=== PATIENT | male | born 1970 | race Caucasian/White ===

== ENCOUNTER 2020-06-02 15:59 | Outpatient (REF) | payer BC, SELFPAY ==
--- NOTE | ~2020-06-02 | XR_ITS ---
EXAMINATION: XR CHEST CLINICAL INFORMATION: Cough COMPARISON: Radiographs cervical spine and dorsal spine 02/13/2019 TECHNIQUE: 2 views of the chest were obtained. FINDINGS: There is linear scarring versus subsegmental atelectasis right upper lobe extending towards hilum. This is beyond field of view on prior spine radiographs. There is no lobar segmental airspace consolidation or effusion. The costophrenic sulci are clear. The heart is normal in size. Mild degenerative changes spine. XR/XR chest 2V IMPRESSION: Linear scarring versus disc atelectasis right upper lobe. No airspace consolidation or effusion.
== END 2020-06-02 16:00 | disposition home or self-care (01) ==
LOC: HO.XRAY 15:59
PROVIDERS: PCP Physician Assistant; Visit Provider Physician Assistant
DX: R05 Cough (principal)
CPT/HCPCS: 71046

== ENCOUNTER 2020-06-08 07:53 | Outpatient (REF) | payer BC, SELFPAY ==
[2020-06-08 10:34] LABS: Estimated Average Glucose 100 mg/dL; Hemoglobin A1C 123.1082 umol/L; Hemoglobin A1c % 5.1 %
[2020-06-08 11:01] LABS: Alanine Aminotransferase 21 U/L (0-40); Albumin Level 4.6 g/dL (3.5-5.0); Alkaline Phosphatase 49 U/L (39-117); Anion Gap 15 (12-20); Aspartate Amino Transferase 17 U/L (5-37); Blood Urea Nitrogen 16 mg/dL (9-16); Calcium 9.1 mg/dL (8.4-10.2); Carbon Dioxide 27 mmol/L (22-29); Chloride 101 mmol/L (96-108); Cholesterol 245 mg/dL; Estimated Glomerular Filt Rate > 60; Glucose Fasting 97 mg/dL (60-99); HDL Cholesterol 61 mg/dL; LDL Cholesterol Calculated 166 mg/dl; Potassium 4.4 mmol/L (3.3-5.1); Sodium 139 mmol/L (135-145); Total Protein 7.1 g/dL (6.5-8.0); Triglycerides 90 mg/dL
[2020-06-08 11:10] LABS: Prostate Specific Antigen Scr 0.76 ng/mL (<0.05-4.0)
== END 2020-06-08 07:54 | disposition home or self-care (01) ==
LOC: HO.10HDL 07:53
PROVIDERS: Visit Provider Physician Assistant
DX: Z13.220 Encounter for screening for lipoid disorders (principal); Z13.1 Encounter for screening for diabetes mellitus; Z12.5 Encounter for screening for malignant neoplasm of prostate
CPT/HCPCS: 36415; 80053; 80061; 83036; 84153

== ENCOUNTER → 2020-12-05 13:18 | Outpatient (BNVA) | payer BC, SELFPAY | PROVIDERS: PCP Physician Assistant; Referring Provider Physician Assistant; Visit Provider Physician Assistant ==

== ENCOUNTER 2021-01-18 14:14 | Outpatient (REF) | payer BC, SELFPAY ==
--- NOTE | ~2021-01-18 | XR_ITS ---
EXAMINATION: XR SHOULDER-BILATERAL CLINICAL INFORMATION: Unspecified disorder of the synovium and tendon. COMPARISON: None TECHNIQUE: 4 views each of both shoulders. FINDINGS: Right shoulder: The bony alignment is intact. The cortices are intact. Articular margins, joint space appear unremarkable. The soft tissues are unremarkable. Left shoulder: The bony alignment is intact. The cortices are intact. Articular margins, joint space appear unremarkable. The soft tissues are unremarkable. XR/XR shoulder RT min 2V IMPRESSION: Unremarkable radiographic appearance of both shoulders.
--- NOTE | ~2021-01-18 | XR_ITS ---
EXAMINATION: XR SHOULDER-BILATERAL CLINICAL INFORMATION: Unspecified disorder of the synovium and tendon. COMPARISON: None TECHNIQUE: 4 views each of both shoulders. FINDINGS: Right shoulder: The bony alignment is intact. The cortices are intact. Articular margins, joint space appear unremarkable. The soft tissues are unremarkable. Left shoulder: The bony alignment is intact. The cortices are intact. Articular margins, joint space appear unremarkable. The soft tissues are unremarkable. XR/XR shoulder LT min 2V IMPRESSION: Unremarkable radiographic appearance of both shoulders.
[2021-01-18 15:36] LABS: C Reactive Protein 0.02 mg/dL (< or = 0.50); Rheumatoid Factor < 15.0 IU/mL (<15.0)
[2021-01-18 15:54] LABS: Erythrocyte Sedimentation Rate 2 MM/HR (0-15)
[2021-01-20 12:56] LABS: Cyclic Citrullinated Peptide <16 UNITS
== END 2021-01-18 14:15 | disposition home or self-care (01) ==
LOC: HO.XRAY 14:14
PROVIDERS: PCP Physician Assistant; Visit Provider Physician Assistant
DX: M25.50 Pain in unspecified joint (principal); M67.911 Unspecified disorder of synovium and tendon, right shoulder; M67.912 Unspecified disorder of synovium and tendon, left shoulder
CPT/HCPCS: 36415; 73030; 85652; 86140; 86200; 86431

== ENCOUNTER 2021-02-06 07:57 | Day surgery (SDC) | payer BC, SELFPAY ==
--- NOTE | 2021-02-01 10:37 | HO.ANESPROP2 ---
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 Surgical History Surgical History H/O varicose vein stripping History of mandibular surgery [place] teeth extracted Social History Social History Household Members Other:: no kids Alcohol intake: current Patient Tobacco Use Status: Never used Tobacco Use of substances other than those prescribed or required for medical reasons: No Are you DNR?: No Advance Directives: No Advance Directives Information Provided: Yes Current occupational status: employed Meds Allergies Allergy/AdvReac Type Severity Reaction Status Date / Time Penicillins [PENICILLINS] Allergy Intermediate RASH Verified 01/27/21 13:01 Home Medications Medication Instructions Recorded Confirmed Last Taken Type cyanocobalamin (vitamin B-12) 1,000 mcg PO DAILY 12/23/19 01/27/21 Unknown History 1,000 mcg tablet (Vitamin B-12) Exam Exam Date and Time: February 01, 2021 1037 Assessment and Plan Assessment Anesthesia Assessment: Chart Reviewed Documented by User: Gela Castro MD 02/06/21 08:22 [facility] Past Medical History Medical History Arthritis GERD (gastroesophageal reflux disease) Hyperlipidemia Leukopenia TMJ arthritis Family History Family History Mother Cancer Father No problems noted. Family history of problems with anesthesia: No Surgical History Surgical History H/O varicose vein stripping History of mandibular surgery [place] teeth extracted History of Problems with Anesthesia: No Social History Social History Household Members Other:: no kids Alcohol intake: current Patient Tobacco Use Status: Never used Tobacco Use of substances other than those prescribed or required for medical reasons: No Are you DNR?: No Advance Directives: No Advance Directives Information Provided: Yes Current occupational status: employed Meds Allergies Allergy/AdvReac Type Severity Reaction Status Date / Time Penicillins [PENICILLINS] Allergy Intermediate RASH Verified 01/27/21 13:01 Home Medications Medication Instructions Recorded Confirmed Last Taken Type cyanocobalamin (vitamin B-12) 1,000 mcg PO DAILY 12/23/19 01/27/21 Unknown History 1,000 mcg tablet (Vitamin B-12) Exam Airway Mallampati Class: II (Upper cap left) TM Dist: >3cm Neck ROM: Full Heart: rrr Lungs: cta Assessment and Plan Assessment Anesthesia Assessment: Anesthesia Plan Discussed and Chart Reviewed Final Anesthetic Review Family History of Problems with Anesthesia: No History of Problems with Anesthesia: No NPO: Yes ASA Class: II Final Preanesthetic Review: No Changes in Pt Med Stat, Meds/Allgs Chart Reviewed and Consent Obtained/Reviewed Patient Risk: Intermediate Procedure Risk: Intermediate Anesthetic Plan Anesthetic Plan: MAC: Disposition: Standard PACU
[2021-02-06 08:11] VITALS: BP 139/85; PULSE 75; RESP 16; TEMP 36.4; O2SAT 97; BMI 31.8
[2021-02-06] MEDS: Lactated Ringers 1,000 ML 100 ML IVCONT (08:18)
--- NOTE | 2021-02-06 08:33 | P.HPSUR_ITS ---
Pre-Procedural Eval Section A Date of Service: 02/06/21 Section B Chief Complaint: GERD, Screening Relevant Family History (Specify if Yes): Yes Relevant Social History: None Present Medications: see Short Stay Collaborative assessment Medical History: Significant History (Arthritis GERD (gastroesophageal reflux disease) Hyperlipidemia Leukopenia TMJ arthritis) History of Previous Operations: Relevant previous surgery/procedure and date(s) (H/O varicose vein stripping History of mandibular surgery [place] teeth extracted) Allergies: Allergies Allergy/AdvReac Type Severity Reaction Status Date / Time Penicillins [PENICILLINS] Allergy Intermediate RASH Verified 01/27/21 13:01 Review of Systems Sugical H&P ROS: Negative: Constitution, Cardiovascular, Respiratory, Neurological, Psychiatric, Hem-Onc, Allergic/Immunologic, Gastrointestinal, Genitourinary, Musculoskeletal, Integumentary, Endocrine and Eyes/Ears/Nose/Throat Exam Surgical H&P Exam: Normal: HEENT, Normal: Heart, Normal: Lungs, Normal: Extremi ties, Normal: Abdomen, Normal: Skin and Normal: Neurological Plan Diagnosis/Plan: Unchanged I have reviewed the history and physical and performed a pertinent physical examination on my patient. No changes have occurred unless specified.
--- NOTE | 2021-02-06 08:54 | P.BOP_ITS ---
Brief Operative Note Date of Service: 02/06/21 Pre-op diagnosis: GERD, colon screening Post-op diagnosis: same Procedure: see op note Surgeon: Sharon Murphy MD Anesthesia: MAC Was an [facility] Wellness Coordinator used for this Procedure?: No Estimated blood loss (mL): 0 Condition: stable Disposition: PACU
--- NOTE | 2021-02-06 08:54 | P.OP_ITS ---
Operative Note Operative Note Date of Service: 02/06/21 Narrative: Operative Information Procedure Description: EGD, Colonoscopy FLEXIBLE TRANSORAL UPPER GASTROINTESTINAL ENDOSCOPY AND COLONOSCOPY PROCEDURE NOTE UPPER ENDOSCOPY Consent: Indications for the procedure and potential complications of bleeding, perforation, reaction to medications and missed diagnosis were discussed with the patient and informed consent was obtained. Instrument: Olympus GIF H 190 J mid size upper endoscope Monitoring: Vital signs and clinical assessment, continuous EKG monitoring, Pulse oximetry, Carbon Dioxide monitoring and blood pressure monitoring were done throughout the procedure. Procedure: The patient was placed in the left lateral decubitis position and pre-procedure medications were administered and a bite block was placed. The endoscope was inserted into the mouth and advanced under direct vision to the third part of duodenum. A careful inspection was made as the upper endoscope was withdrawn including a retroflexed examination of the proximal stomach; Findings and interventions are described below. Findings: Larynx:erythema noted Esophagus: GE junction at 41 cm, diaphragm hiatus at 43 cm, small sliding h iatal hernia noted. irregular Z line with suspicion for short segment barretts, bx taken. Bx also taken from distal and proximal esophagus in separate jars. The LEs seemed lax. Stomach: Erosive gastritis in the antrum. Biopsies were obtained. Grade 2 flap valve on retroflexed examination of the cardia. Duodenum: mild bulbar duodenitis, bx taken Intervention: Biopsies as noted above COLONOSCOPY Instrument: Olympus variable stiffness pediatric scope 190L Colonoscopy Monitoring: Vital signs and clinical assessment, continuous EKG monitoring, Pulse oximetry, Carbon Dioxide monitoring and blood pressure monitoring were done throughout the procedure. Colon withdrawal time was 17 minutes. Procedure: The patient was placed in the left lateral decubitis position and pre-procedure medications were administered. After a digital rectal examination of the ano-rectum, the video colonoscope was inserted into the rectum and advanced through the colon to the cecum/TI. The colonoscope was slowly withdrawn in a retrograde panoramic fashion and the colon mucosa was carefully examined including a retroflexed view of the rectum. Findings and interventions are described below. Procedure Difficulty: Findings: Terminal Ileum-normal Cecum:normal Ascending Colon: proximal area there was a 12-15 mm laterally spreading granular polypoid lesion with mucosal cap. This was raised with ORISE and then removed with cold snare. The edges were ablated with circumferential APC and then the defect closed with x 2 clips. Transverse Colon -normal Descending Colon:moderate severe diverticulosis Sigmoid Colon: severe diverticulosis with mucosal hypertrophy Rectum: Retroflexion with small internal hemorrhoids, grade I Anorectum - normal Colon preparation: [place] Bowel Preparation Scale Right colon; 2 Transverse colon: 3 Left colon; 3 (0 = Unprepared colon segment with mucosa not seen due to solid stool that cannot be cleared. 1 = Portion of mucosa of the colon segment seen, but other areas of the colon segment not well seen due to staining, residual stool and/or opaque liquid. 2 = Minor amount of residual staining, small fragments of stool and/or opaque l iquid, but mucosa of colon segment seen well. 3 = Entire mucosa of colon segment seen well with no residual staining, small fragments of stool or opaque liquid) Impression and Post Procedure Diagnosis: Endoscopy Findings: gastritis and erosions laryngitis duodenitis possible barretts small hiatal hernia Colonoscopy Findings: polyp internal hemorrhoids diverticular disease Plan: Await Pathology results Repeat Colonoscopy in 3-4 years or earlier if clinically indicated High fiber diet leaflet avoid straining at stool, epsom salts and sitz bath, anusol supps or cream if h pylori pos then treat, check nsaid hx if Barretts pos then repeat EGD in 1 yr with WATS 3D consider PPI instead of H2 jose juan \ Above findings were reviewed with the patient and relevant handouts were provided if indicated.
[2021-02-06 09:27] VITALS: BP 120/78; PULSE 76; RESP 16; TEMP 36.8; O2SAT 96
[2021-02-06 09:42] VITALS: BP 120/73; PULSE 70; RESP 18; TEMP 36.7; O2SAT 95
== END 2021-02-06 10:12 | disposition home or self-care (01) ==
PROVIDERS: PCP Physician Assistant; Visit Provider Internal Medicine Gastroenterology
PROC: (CPT 45385; principal; 2021-02-06 09:10)
DX: Z12.11 Encounter for screening for malignant neoplasm of colon (principal); D12.4 Benign neoplasm of descending colon; K57.30 Diverticulosis of large intestine without perforation or abscess without bleeding; K64.0 First degree hemorrhoids; K21.9 Gastro-esophageal reflux disease without esophagitis; K22.70 Barrett's esophagus without dysplasia; K29.00 Acute gastritis without bleeding; K20.80 Other esophagitis without bleeding; K29.80 Duodenitis without bleeding; K44.9 Diaphragmatic hernia without obstruction or gangrene; E78.5 Hyperlipidemia, unspecified; M26.649 Arthritis of unspecified temporomandibular joint; Z79.899 Other long term (current) drug therapy; Z88.0 Allergy status to penicillin
CPT/HCPCS: 45385; 45381; 43239; 88305; 88342

== ENCOUNTER 2021-11-29 07:56 | Outpatient (REF) | payer BC, SELFPAY ==
[2021-11-29 09:48] LABS: Prostate Specific Antigen Scr 1.41 ng/mL (<0.05-4.0)
== END 2021-11-29 07:57 | disposition home or self-care (01) ==
LOC: HO.LAB 07:56
PROVIDERS: PCP Physician Assistant; Visit Provider Physician Assistant
DX: Z12.5 Encounter for screening for malignant neoplasm of prostate (principal); E78.3 Hyperchylomicronemia
CPT/HCPCS: 36415; 84153

== ENCOUNTER 2022-01-24 12:25 | Outpatient (REF) | payer BC, SELFPAY ==
[2022-01-24 14:13] LABS: Hematocrit 45.5 % (42.0-52.0); Hemoglobin 15.2 g/dl (14.0-18.0); Mean Corpuscular HGB Conc 33.4 g/dl (31.0-36.0); Mean Corpuscular Volume 92.7 fL (80.0-98.0); Mean Platelet Volume 10.4 fL (9.4-12.4); Platelet Count 219 X10*3/uL (160-400); Red Blood Count 4.91 X10*6/uL (4.60-5.80); Red Cell Distribution Width 11.7 % (11.0-16.0); White Blood Count 4.5 X10*3/uL (4.8-10.8)
[2022-01-24 14:46] LABS: Alanine Aminotransferase 25 U/L (0-40); Albumin Level 4.8 g/dL (3.5-5.0); Alkaline Phosphatase 52 U/L (39-117); Anion Gap 16 (12-20); Aspartate Amino Transferase 21 U/L (5-37); Bilirubin Total 0.7 mg/dL (0.0-1.0); Blood Urea Nitrogen 18 mg/dL (9-16); Calcium 9.9 mg/dL (8.4-10.2); Carbon Dioxide 26 mmol/L (22-29); Chloride 103 mmol/L (96-108); Cholesterol 182 mg/dL; Estimated Glomerular Filt Rate > 60; Glucose Fasting 84 mg/dL (60-99); HDL Cholesterol 56 mg/dL; LDL Cholesterol Calculated 116 mg/dl; Potassium 5.1 mmol/L (3.3-5.1); Sodium 140 mmol/L (135-145); Total Protein 7.5 g/dL (6.5-8.0); Triglycerides 50 mg/dL
[2022-01-24 14:52] LABS: TSH reflex Free T4 1.11 uIU/mL (0.32-4.0)
== END 2022-01-24 12:26 | disposition home or self-care (01) ==
LOC: HO.LAB 12:25
PROVIDERS: PCP Physician Assistant; Visit Provider Physician Assistant
DX: E78.3 Hyperchylomicronemia (principal)
CPT/HCPCS: 36415; 80053; 80061; 84443; 85027

== ENCOUNTER 2022-08-01 10:33 | Outpatient (REF) | payer BC, SELFPAY ==
[2022-08-01 11:32] LABS: Hematocrit 44.2 % (42.0-52.0); Hemoglobin 14.9 g/dl (14.0-18.0); Mean Corpuscular HGB Conc 33.7 g/dl (31.0-36.0); Mean Corpuscular Hemoglobin 30.6 pg (27.0-33.0); Mean Corpuscular Volume 90.8 fL (80.0-98.0); Platelet Count 203 X10*3/uL (160-400); Red Blood Count 4.87 X10*6/uL (4.60-5.80); White Blood Count 5.3 X10*3/uL (4.8-10.8)
[2022-08-01 12:51] LABS: Alanine Aminotransferase 19 U/L (0-40); Albumin Level 4.7 g/dL (3.5-5.0); Alkaline Phosphatase 46 U/L (39-117); Anion Gap 14 (12-20); Aspartate Amino Transferase 21 U/L (5-37); Bilirubin Total 1.2 mg/dL (0.0-1.0); Blood Urea Nitrogen 18 mg/dL (9-16); Calcium 9.8 mg/dL (8.4-10.2); Carbon Dioxide 27 mmol/L (22-29); Chloride 105 mmol/L (96-108); Cholesterol 175 mg/dL; Estimated Glomerular Filt Rate > 60; Glucose Fasting 96 mg/dL (60-99); HDL Cholesterol 61 mg/dL; LDL Cholesterol Calculated 105 mg/dl; Potassium 4.8 mmol/L (3.3-5.1); Sodium 141 mmol/L (135-145); Total Protein 7.2 g/dL (6.5-8.0); Triglycerides 48 mg/dL
[2022-08-01 13:15] LABS: Folate 8.8 ng/mL (> or = 4.0); Prostate Specific Antigen Scr 0.89 ng/mL (<0.05-4.0); TSH reflex Free T4 1.31 uIU/mL (0.32-4.0); Vitamin B12 884 pg/mL (200-900)
== END 2022-08-01 10:34 | disposition home or self-care (01) ==
LOC: HO.LAB 10:33
PROVIDERS: PCP Physician Assistant; Visit Provider Physician Assistant
DX: Z12.5 Encounter for screening for malignant neoplasm of prostate (principal); E78.3 Hyperchylomicronemia; D72.819 Decreased white blood cell count, unspecified; E53.8 Deficiency of other specified B group vitamins; H61.21 Impacted cerumen, right ear; E78.5 Hyperlipidemia, unspecified; E66.9 Obesity, unspecified; R03.0 Elevated blood-pressure reading, without diagnosis of hypertension
CPT/HCPCS: 36415; 80053; 80061; 82607; 82746; 84153; 84443; 85027

== ENCOUNTER → 2022-10-01 12:50 | Outpatient (REF) | payer BC, SELFPAY | LOC: HO.SL 12:50 | PROVIDERS: PCP Physician Assistant; Visit Provider Physician Assistant | DX: G47.33 Obstructive sleep apnea (adult) (pediatric) (principal); R03.0 Elevated blood-pressure reading, without diagnosis of hypertension; R40.0 Somnolence | CPT/HCPCS: 95806 ==

== ENCOUNTER → 2022-10-01 13:01 | Outpatient (BNV) | payer BC, SELFPAY | PROVIDERS: PCP Physician Assistant; Visit Provider Internal Medicine | DX: R06.83 Snoring (principal) | CPT/HCPCS: 95806 ==

== ENCOUNTER 2023-01-30 07:51 | Outpatient (AMB) | payer BC, SELFPAY ==
--- NOTE | 2023-01-30 08:02 | A.OFFPC_ITS ---
Vital Signs 01/30/23 08:03 Height 5 ft 11 in Weight 228 lb 8 oz BMI 31.9 BP 142/90 H Blood Pressure Location Lt brachial Position Sitting Pulse 88 Pulse Source Pulse Oximeter Pulse Oximetry (%) 95 Oxygen Delivery Method Room Air Intake Visit Reasons: bp f/u Simulation Tech Required: No Accompanied by: Self / Same As Patient Allergies Penicillins [PENICILLINS] Allergy (Intermediate, Verified 01/30/23 08:13) RASH Medication List - Last Reconciled 01/30/23 by Lexx Brooks PA-C ciprofloxacin-dexamethasone 0.3-0.1 % (Ciprodex) 4 drps otic (ears) BID 7 days cyanocobalamin (vitamin B-12) (Vitamin B-12) 1,000 mcg PO DAILY pantoprazole 40 mg PO DAILY simvastatin 40 mg PO DAILY Tobacco use date assessed: 01/30/23 Dental Screening Dental Screen Date: 01/30/23 Did you have a dental visit in the last 12 months?: Yes Did you have a dental problem in the last 6 months where you did not have access to dental care?: No Was dental information given to patient?: Patient has dentist HPI bp f/u HPI Details Patient is a 52-year-old male here today for follow-up visit. Patient has a past medical history significant for obesity, hyperlipidemia, GERD, elevated blood pressure readings. We have been discussing his elevated blood pressure readings here in the office. He reports that home blood pressures are stable. He denies any symptoms of high blood pressure. [facility] Medical History (Updated 08/16/22 @ 13:24 by Lexx Brooks PA-C) Polyarthralgia TMJ arthritis Arthritis Hyperlipidemia GERD (gastroesophageal reflux disease) Leukopenia Surgical History History of colonoscopy History of mandibular surgery [place] teeth extracted H/O varicose vein stripping Family History Mother Cancer Father No problems noted. (Updated 08/01/22 @ 10:03 by Lexx Brooks PA-C) Household Members: Spouse Household Members Other:: no kids Housing: House Alcohol intake: current Alcohol intake frequency: a few times a week Alcohol type: wine Patient Tobacco Use Status: Former Tobacco user Quit Date: 2002 Tobacco use type: Cigarette e-Cigarette/Vaping Use: Never Used Second Hand Smoke Exposure: No service: No Current occupational status: employed Current occupation: [employer] Cognitive needs: No Hearing needs: No Vision needs: Yes (for reading) Questionnaire PHQ-9 Over the last 2 weeks, how often have you been bothered by any of the following problems? 1. Little interest or pleasure in doing things: not at all 2. Feeling down, depressed, or hopeless: not at all 3. Trouble falling or staying asleep, or sleeping too much: not at all 4. Feeling tired or having little energy: not at all 5. Poor appetite or overeating: not at all 6. Feeling bad about yourself - or that you are a failure or have let yourself or your family down: not at all 7. Trouble concentrating on things, such as reading the newspaper or watching television: not at all 8. Moving or speaking so slowly that other people could have noticed. Or the opposite - being so fidgety or restless that you have been moving around a lot more than usual: not at all 9. Thoughts that you would be better off or of hurting yourself in some way: not at all Total score: 0 Depression Screening Interpretation: Negative Depression Screening Done: Yes 80008 - PHQ-9 Billing: Yes Source: Developed by Drs. Domingo Henriquez, Yin Avila, Dakota Back and colleagues, with an educational smitha from [employer]. Thrive Questionnaire Date Thrive assessed: 01/30/23 I am a: Patient What is your living situation today?: I have a steady place to live Within the past 12 months, did the food you bought not last and you didn't have the money to get more?: Never true Within the past 12 months, did you worry whether your food would run out before you got money to buy more?: Never true Do you have trouble paying for medicines?: No Do you have trouble getting transportation to medical appointments?: No Do you have trouble paying your heating and electricity bill?: No Do you have trouble taking care of your child, family member or friend?: No Do you have trouble with day-to-day activities such as bathing, preparing meals, shopping, managing finances, etc.?: No Are you currently unemployed and looking for a job?: No Are you interested in more education?: No Please select the resources that you would like help with: None Currently or been in a relationship where the following occur: no concerns reported AUDIT C Alcohol Use Questionnaire (AUDIT-C) 1. How often do you have a drink containing alcohol?: Monthly or less Total Score: 1 TESS-7 AMB Questionnaire TESS-7 Date TESS - 7 assessed: 01/30/23 Feeling nervous, anxious, or on edge: 0 = Not at all Not being able to stop or control worryin = Not at all Worrying too much about different things: 0 = Not at all Trouble relaxin = Not at all Being so restless that it is hard to sit still: 0 = Not at all Becoming easily annoyed or irritable: 0 = Not at all Feeling afraid as if something awful might happen: 0 = Not at all Total TESS-7 score (0-4 normal; 5-9 mild; 10-14 moderate; 15-21 severe): 0 Source: Developed by Drs. Domingo Henriquez, Yin Avila, Dakota Back and colleagues, with an educational smitha from [employer]. TESS-7 Assessment Billing TESS-7 Assessment Tool: TESS-7 Assessment 37676 Review of Systems Const Denies headache(s) Eyes Denies loss of vision ENT Denies vertigo, Denies dizziness, Denies headache(s) and Denies sore throat Card Denies chest pain, Denies leg edema and Denies lightheadedness Resp Denies cough, Denies hemoptysis and Denies wheezing GI Denies abdominal pain, Denies melena, Denies constipation, Denies diarrhea and Denies vomiting Denies dysuria, Denies urinary frequency and Denies urinary urgency Musc Denies arthralgias, Denies joint swelling, Denies numbness and Denies tingling Neuro Denies Abnormal speech present, Denies behavioral changes, Denies vertigo, Denies dizziness, Denies headache(s), Denies loss of vision, Denies memory loss, Denies numbness and Denies tingling Psych Denies anxiety, Denies behavioral changes, Denies depression, Denies memory loss and Denies panic attacks Siddhartha/Lymph Denies easy bleeding and Denies easy bruising Aller/Immun Denies wheezing Physical exam (Primary Care) Vital Signs: Last Vital Signs Pulse 88 01/30/23 08:03 BP 142/90 H 01/30/23 08:03 Pulse Ox 95 01/30/23 08:03 Oxygen Delivery Method Room Air 01/30/23 08:03 BMI result Body Mass Index 31.9 Tobacco/Smoking Status: Tobacco use Status Tobacco use date assessed 01/30/23 01/30/23 08:09 Patient Tobacco Use Status Former Tobacco user 01/30/23 08:09 Tobacco use type Cigarette 01/30/23 08:09 e-Cigarette/Vaping Use Never Used 01/30/23 08:09 PHQ-9: PHQ-9 Score PHQ-9: Total score 0 01/30/23 08:09 Depression Screening Interpretation: Negative Thrive Assessment: Date of Thrive Assessment Date Thrive assessed 01/30/23 01/30/23 08:09 Currently or been in a relationship where the following occur: no concerns reported Const General: healthy appearing, no acute distress, alert and awake Nutritional Appearance: well nourished Orientation/consciousness: oriented to person, oriented to place and oriented to time HENMT Ears: TM's normal bilaterally General nose exam: Normal nasal mucous membranes and turbinates present Eyes Conjunctivae: conjunctivae normal Sclerae: sclerae normal Pupils: Equal, round and reactive pupils present Neck Neck: Yes no lymphadenopathy and Yes no JVD Thyroid: Thyroid normal Carotids: no bruits Resp Effort & Inspection: normal respiratory effort and not tachypneic Auscultation: no crackles, no rales, no rhonchi and no wheezes Cardio Rate: regular rate Rhythm: regular rhythm Heart sounds: no murmurs and normal S1 and S2 GI Palpation (GI): Soft to palpation, nontender, no hepatomegaly and no splenomegaly Auscultation: normal bowel sounds Skin General skin exam: no rashes or lesions noted and dry skin Neuro General: oriented to person, oriented to place and oriented to time Cranial nerves: Yes Equal, round and reactive pupils present Speech: No Abnormal speech present Gait exam (Neuro): Normal gait present Motor exam (neuro): no tremor noted Extrem Right upper extremity: full ROM Left upper extremity: full ROM Right lower extremity: full ROM; no edema Left lower extremity: full ROM; no edema Psych Mental Status: mental status grossly normal Speech and movement: Normal speech and movement present Affect: normal affect Attitude: cooperative Thought process: Normal thought process present Assessment and Plan Assessment & Plan (1) Elevated blood pressure reading in office with white coat syndrome, without diagnosis of hypertension: Code(s): R03.0 - Elevated blood-pressure reading, without diagnosis of hypertension Plan: Blood pressure slightly elevated today in office. At home blood pressures are 120s systolic. He otherwise denies any headaches, vision issues or chest discomfort. Likely a case of white coat hypertension. Will hold off on starting any blood pressure medication at this time. Will continue monitoring his blood pressure at home. Advised on low-sodium diet and weight reduction. (2) Obese: Code(s): E66.9 - Obesity, unspecified Qualifiers: Obesity type: due to excess calories Obesity classification: adult class 1 (BMI 30 - 34.9) Serious obesity comorbidity presence: without serious comorbidity Body mass index: BMI 32.0-32.9 Qualified Code(s): E66.09 - Other obesity due to excess calories; Z68.32 - Body mass index [BMI] 32.0-32.9, adult Plan: Patient does understand his BMI is over 30 will continue working on lifestyle modifications to reduce his weight. Coding Level of Care Code Est Pt Level 3 (94360) Diagnoses Elevated blood pressure reading in office with white coat syndrome, without diagnosis of hypertension R03.0 Class 1 obesity due to excess calories without serious comorbidity with body mass index (BMI) of 32.0 to 32.9 in adult E66.09; Z68.32 Obesity type: due to excess calories Obesity classification: adult class 1 (BMI 30 - 34.9) Serious obesity comorbidity presence: without serious comorbidity Body mass index: BMI 32.0-32.9 Additional Codes TESS-7 Assessment Billing - TESS-7 Assessment Tool: TESS-7 Assessment [id number] ([id number])
[2023-01-30 08:03] VITALS: BP 142/90; PULSE 88; O2SAT 95; BMI 31.9
== END 2023-01-30 08:26 | disposition home or self-care (01) ==
PROVIDERS: PCP Physician Assistant; Visit Provider Physician Assistant
DX: R03.0 Elevated blood-pressure reading, without diagnosis of hypertension (principal); E66.09 Other obesity due to excess calories; Z68.32 Body mass index [BMI] 32.0-32.9, adult
CPT/HCPCS: 99213

== ENCOUNTER 2023-08-07 08:13 | Outpatient (AMB) | payer BC, SELFPAY ==
[2023-08-07 08:33] VITALS: BP 136/82; BMI 31.7
--- NOTE | 2023-08-07 08:33 | MHC.PC.OV ---
Vital Signs 08/07/23 08:33 Height 5 ft 11 in Weight 227 lb BMI 31.7 BP 136/82 Blood Pressure Location Lt brachial Position Sitting Intake Visit Reasons: Annual exam Intake Note: Patient here for physical exam Line Ordering Clinician Required: No Accompanied by: Self / Same As Patient Allergies Penicillins [PENICILLINS] Allergy (Intermediate, Verified 08/07/23 08:42) RASH Medication List - Last Reconciled 08/07/23 by Lexx Brooks PA-C cyanocobalamin (vitamin B-12) (Vitamin B-12) 1,000 mcg PO DAILY pantoprazole 40 mg PO DAILY simvastatin 40 mg PO DAILY Tobacco use date assessed: 08/07/23 Dental Screening Dental Screen Date: 08/07/23 Did you have a dental visit in the last 12 months?: Yes Did you have a dental problem in the last 6 months where you did not have access to dental care?: No Was dental information given to patient?: Patient has dentist HPI Annual exam HPI Details Patient is a 52-y ear-old male here today for routine annual physical.? Patient has a past medical history s ignificant for hyp erlipidemia, GERD, polyarthralgia. concerns--> report s having 2 episode s of swollen lips in the setting of an upper respirato ry viral illness. Also reports hav ing some right fla nk pain at times t o which he attribu kenny to a muscular issue due to his p hysically demandin g job. Elevated b lood pressure read ing: Blood pressu re today in office acceptable. .. H yperlipidemia:? Mo st recent lipid daylin seamus showing excell ent control of his total cholesterol and LDL.? He cont inues on? statin t herapy without any side effect. .. GERD:? Uses PPI th erapy daily with g ood effect. .. Cheri kopenia: Continue s to follow hemato logy, leukopenia h as been stable. . . Obesity:? Has be en able to lose a few lb since last office visit, does report he has bee n more physically active and adaptin g to better eating habits to reduce his weight. ? Vaccines: Up-to-date with COVID vaccine, tetanus vaccine, considering shingles vaccine Colon cancer screening: Colonoscopy done in 2020, need repeat 3-5 years PFS Medical History Polyarthralgia TMJ arthritis Arthritis Hyperlipidemia GERD (gastroesophageal reflux disease) Leukopenia Surgical History History of colonoscopy History of mandibular surgery [place] teeth extracted H/O varicose vein stripping Family History Mother Cancer Father No problems noted. Social History (Updated 08/07/23 @ 08:48 by Lexx Brooks PA-C) Household Members: Spouse Household Members Other:: no kids Housing: House Alcohol intake: current Alcohol intake frequency: a few times a week Alcohol type: wine Patient Tobacco Use Status: Former Tobacco user Quit Date: 2002 Tobacco use type: Cigarette e-Cigarette/Vaping Use: Never Used Second Hand Smoke Exposure: No service: No Current occupational status: employed Current occupation: [employer] Current occupational exposures/hazards: No Cognitive needs: No Hearing needs: No Vision needs: Yes (for reading) Questionnaire PHQ-9 Over the last 2 weeks, how often have you been bothered by any of the following problems? 1. Little interest or pleasure in doing things: not at all 2. Feeling down, depressed, or hopeless: not at all 3. Trouble falling or staying asleep, or sleeping too much: not at all 4. Feeling tired or having little energy: not at all 5. Poor appetite or overeating: not at all 6. Feeling bad about yourself - or that you are a failure or have let yourself or your family down: not at all 7. Trouble concentrating on things, such as reading the newspaper or watching television: not at all 8. Moving or speaking so slowly that other people could have noticed. Or the opposite - being so fidgety or restless that you have been moving around a lot more than usual: not at all 9. Thoughts that you would be better off or of hurting yourself in some way: not at all Total score: 0 Depression Screening Interpretation: Negative Depression Screening Done: Yes 16008 - PHQ-9 Billing: Yes Source: Developed by Drs. Domingo Henriquez, Yin Avila, Dakota Back and colleagues, with an educational smitha from [employer]. Thrive Questionnaire Date Thrive assessed: 08/07/23 I am a: Patient What is your living situation today?: I have a steady place to live Within the past 12 months, did the food you bought not last and you didn't have the money to get more?: Never true Within the past 12 months, did you worry whether your food would run out before you got money to buy more?: Never true Do you have trouble paying for medicines?: No Do you have trouble getting transportation to medical appointments?: No Do you have trouble paying your heating and electricity bill?: No Do you have trouble taking care of your child, family member or friend?: No Do you have trouble with day-to-day activities such as bathing, preparing meals, shopping, managing finances, etc.?: No Are you currently unemployed and looking for a job?: No Are you interested in more education?: No Please select the resources that you would like help with: None Currently or been in a relationship where the following occur: no concerns reported THRIVE Score: 0 AUDIT C Alcohol Use Questionnaire (AUDIT-C) 1. How often do you have a drink containing alcohol?: Monthly or less 2. How many drinks containing alcohol do you have on a typical day when you are drinking?: 1 or 2 3. How often do you have six or more drinks on one occasion?: Never Total Score: 1 TESS-7 AMB Questionnaire TESS-7 Date TESS - 7 assessed: 08/07/23 Feeling nervous, anxious, or on edge: 0 = Not at all Not being able to stop or control worryin = Not at all Worrying too much about different things: 0 = Not at all Trouble relaxin = Not at all Being so restless that it is hard to sit still: 0 = Not at all Becoming easily annoyed or irritable: 0 = Not at all Feeling afraid as if something awful might happen: 0 = Not at all Total TESS-7 score (0-4 normal; 5-9 mild; 10-14 moderate; 15-21 severe): 0 Source: Developed by Drs. Domingo Henriquez, Yin Avila, Dakota Back and colleagues, with an educational smitha from [employer]. TESS-7 Assessment Billing TESS-7 Assessment Tool: TESS-7 Assessment 08955 Review of Systems Const Denies body aches, Denies chills, Denies excessive sweating, Denies fatigue, Denies fever(s) and Denies headache(s) Eyes Denies blurry vision ENT Denies dysphagia, Denies vertigo, Denies dizziness, Denies headache(s), Denies hearing loss and Denies tinnitus Card Denies chest pain, Denies chest pain with activity, Denies syncope, Denies irregular heart rhythm and Denies dyspnea Resp Denies chest congestion, Denies cough, Denies hemoptysis, Denies dyspnea and Denies wheezing GI Denies abdominal pain, Denies melena, Denies hematochezia, Denies coffee ground emesis, Denies dysphagia, Denies diarrhea, Denies nausea and Denies vomiting Denies difficulty urinating, Denies dysuria, Denies urinary frequency, Denies urinary hesitancy and Denies urinary urgency Musc Denies arthralgias, Denies limited range of motion, Denies muscle cramps and Denies muscle weakness Skin/Breast Denies rash and Denies skin ulcer Neuro Denies Abnormal speech present, Denies confusion, Denies vertigo, Denies dizziness, Denies syncope, Denies headache(s), Denies memory loss and Denies seizure-like activity Psych Denies anxiety, Denies confusion, Denies depression, Denies memory loss, Denies panic attacks and Denies paranoia Endo Denies excessive sweating, Denies fatigue, Denies flushing, Denies polydipsia and Denies polyuria Aller/Immun Denies wheezing Physical exam (Primary Care) Vital Signs: Last Vital Signs BP 136/82 08/07/23 08:33 BMI result Body Mass Index 31.7 Tobacco/Smoking Status: Tobacco use Status Tobacco use date assessed 08/07/23 08/07/23 08:37 Patient Tobacco Use Status Former Tobacco user 08/07/23 08:37 Tobacco use type Cigarette 08/07/23 08:37 e-Cigarette/Vaping Use Never Used 08/07/23 08:37 PHQ-9: PHQ-9 Score PHQ-9: Total score 0 08/07/23 08:40 Depression Screening Interpretation: Negative Thrive Assessment: Date of Thrive Assessment Date Thrive assessed 08/07/23 08/07/23 08:40 Currently or been in a relationship where the following occur: no concerns reported Const General: cooperative, comfortable, no acute distress, alert and awake; No confusion Orientation/consciousness: oriented to person, oriented to place, patient oriented x3 and No confusion HENMT Head: Yes normocephalic Ears: external ears normal and TM's normal bilaterally Face and sinus: No sinus tenderness Mouth: Normal oral and palatal mucosa present and tongue normal Teeth and gingiva: dentition normal and gingiva normal Throat: Yes posterior oropharynx normal, Yes tonsils normal and Yes uvula midline Eyes Conjunctivae: conjunctivae normal Sclerae: sclerae normal Pupils: Equal, round and reactive pupils present EOM: EOMs intact bilaterally Direct Ophthalmoscopy: No no photophobia Neck Neck: Yes no lymphadenopathy, No tender and Yes no JVD Thyroid: Thyroid normal Carotids: no bruits Chest Chest palpation & inspection: no tenderness Resp Effort & Inspection: normal respiratory effort, no audible wheezes, not labored and no stridor Auscultation: no crackles, no rales, no rhonchi and no wheezes Cardio Jugular venous distension: no JVD Rate: regular rate, not bradycardic and not tachycardic Rhythm: regular rhythm Bruits: no carotid bruits Peripheral pulses: Peripheral pulses 2+ throughout GI Inspection: Yes normal to inspection, No abdominal wall ecchymosis and No visible herniation Palpation (GI): Soft to palpation, nontender, no guarding, not rigid and No hepatosplenomegaly present Auscultation: normoactive bowel sounds General: Yes no CVA tenderness Back/Spine/Pelvis Back: no CVA tenderness and No back tenderness Cervical Spine: cervical ROM normal Thoracic/Lumbar Spine: thoracic and lumbar spine normal to inspection, straight leg raise negative bilaterally, No thoraco-lumbar ROM limited and No lumbar spinal tenderness Skin Lesions: no lesions Rashes: no rashes Wounds: no wounds Neuro General: oriented to person, oriented to place, patient oriented x3, CN's II-XI intact bilaterally and No confusion Cranial nerves: Yes Equal, round and reactive pupils present and Yes Normal accommodation reflex present Cognition (Neuro): normal cognition Speech: No Abnormal speech present Gait exam (Neuro): Normal gait present Motor exam (neuro): 5/5 motor strength present throughout Extrem Right upper extremity: full ROM; no cyanosis Left upper extremity: full ROM; no cyanosis Right lower extremity: no edema Left lower extremity: no edema Psych Appearance: grossly normal Mental Status: mental status grossly normal Affect: normal affect Attitude: cooperative Thought process: Normal thought process present Assessment and Plan Assessment & Plan (1) Annual physical exam: Code(s): Z00.00 - Encounter for general adult medical examination without abnormal findings (2) Obese: Code(s): E66.9 - Obesity, unspecified Qualifiers: Obesity type: due to excess calories Obesity classification: adult class 1 (BMI 30 - 34.9) Serious obesity comorbidity presence: without serious comorbidity Body mass index: BMI 32.0-32.9 Qualified Code(s): E66.09 - Other obesity due to excess calories; Z68.32 - Body mass index [BMI] 32.0-32.9, adult Plan: Patient does understand his BMI is over 30 and has been working on being more physically active and adapting to better eating habits to reduce his weight (3) HLD (hyperlipidemia): Code(s): E78.5 - Hyperlipidemia, unspecified Qualifiers: 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 Continues on simvastatin without any side effect. Goal LDL to be below 130 (4) Leucopenia: Code(s): D72.819 - Decreased white blood cell count, unspecified Qualifiers: Leukopenia type: neutropenia Neutropenia type: unspecified Qualified Code(s): D70.9 - Neutropenia, unspecified Plan: Continues to follow hematology. White blood cell count stable. (5) Elevated blood pressure reading in office with white coat syndrome, without diagnosis of hypertension: Code(s): R03.0 - Elevated blood-pressure reading, without diagnosis of hypertension Plan: Noted elevated blood pressure readings here in the office. He will continue to monitor blood pressures at home. Goal blood pressure be below 140/90 (6) Angioedema: Code(s): T78.3XXA - Angioneurotic edema, initial encounter Qualifiers: Encounter type: subsequent encounter Qualified Code(s): T78.3XXD - Angioneurotic edema, subsequent encounter Plan: Does report 2 episodes of swollen lips in the setting of upper respiratory illness. Unclear if this is angioedema. He would like to be tested for allergies (7) Skin lesion of left arm: Code(s): L98.9 - Disorder of the skin and subcutaneous tissue, unspecified Plan: Does report his skin lesion on his arm and other places in his body. He would like a Dermatology evaluation. (8) Colon polyp: Code(s): K63.5 - Polyp of colon Qualifiers: Colon polyp type: inflammatory Colon location: unspecified part of colon Inflammatory colon polyp complication status: without complication Qualified Code(s): K51.40 - Inflammatory polyps of colon without complications Plan: As per HPI, had colonoscopy in 2020. 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 Referrals Allergy & Immunology Referral T78.3XXD - Angioneurotic edema, subsequent encounter Gastroenterology Referral K63.5 - Polyp of colon Dermatology Referral L98.9 - Disorder of the skin and subcutaneous tissue, unspecified Patient Instructions: Goal: LDL to remain below 130 Barriers: Adherence to healthy eating habits and physical activity Coding Level of Care Code Est Pt Prev Care 40-64y(08976) Diagnoses Annual physical exam Z00.00 Class 1 obesity due to excess calories without serious comorbidity with body mass index (BMI) of 32.0 to 32.9 in adult E66.09; Z68.32 Obesity type: due to excess calories Obesity classification: adult class 1 (BMI 30 - 34.9) Serious obesity comorbidity presence: without serious comorbidity Body mass index: BMI 32.0-32.9 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 Neutropenia, unspecified type D70.9 Leukopenia type: neutropenia Neutropenia type: unspecified Elevated blood pressure reading in office with white coat syndrome, without diagnosis of hypertension R03.0 Angioedema, subsequent encounter T78.3XXD Encounter type: subsequent encounter Skin lesion of left arm L98.9 Pseudopolyposis of colon without complication, unspecified part of colon K51.40 Colon polyp type: inflammatory Colon location: unspecified part of colon Inflammatory colon polyp complication status: without complication Additional Codes TESS-7 Assessment Billing - TESS-7 Assessment Tool: TESS-7 Assessment [id number] ([id number])
== END 2023-08-07 09:05 | disposition home or self-care (01) ==
PROVIDERS: PCP Physician Assistant; Visit Provider Physician Assistant
DX: Z00.00 Encounter for general adult medical examination without abnormal findings (principal); D70.9 Neutropenia, unspecified; K51.40 Inflammatory polyps of colon without complications; E66.09 Other obesity due to excess calories; Z68.32 Body mass index [BMI] 32.0-32.9, adult; E78.3 Hyperchylomicronemia; R03.0 Elevated blood-pressure reading, without diagnosis of hypertension; T78.3XXD Angioneurotic edema, subsequent encounter; L98.9 Disorder of the skin and subcutaneous tissue, unspecified
CPT/HCPCS: 99396

== ENCOUNTER 2023-08-07 09:10 | Outpatient (REF) | payer BC, SELFPAY ==
[2023-08-07 09:41] LABS: Hematocrit 46.4 % (42.0-52.0); Hemoglobin 15.9 g/dl (14.0-18.0); Mean Corpuscular HGB Conc 34.3 g/dl (31.0-36.0); Mean Corpuscular Hemoglobin 31.5 pg (27.0-33.0); Mean Corpuscular Volume 91.9 fL (80.0-98.0); Mean Platelet Volume 9.3 fL (9.4-12.4); Platelet Count 194 X10*3/uL (160-400); Red Blood Count 5.05 X10*6/uL (4.60-5.80); Red Cell Distribution Width 12.3 % (11.0-16.0); White Blood Count 6.5 X10*3/uL (4.8-10.8)
[2023-08-07 10:41] LABS: Alanine Aminotransferase 22 U/L (0-40); Albumin Level 4.6 g/dL (3.5-5.0); Alkaline Phosphatase 50 U/L (39-117); Anion Gap 12 (12-20); Aspartate Amino Transferase 19 U/L (5-37); Bilirubin Total 0.9 mg/dL (0.0-1.0); Blood Urea Nitrogen 21 mg/dL (9-16); Calcium 9.5 mg/dL (8.4-10.2); Carbon Dioxide 26 mmol/L (22-29); Chloride 106 mmol/L (96-108); Cholesterol 172 mg/dL (<200); Estimated Glomerular Filt Rate > 60; Glucose Fasting 97 mg/dL (60-99); HDL Cholesterol 64 mg/dL (>40); LDL Cholesterol Calculated 95 mg/dL (<100); Potassium 4.8 mmol/L (3.3-5.1); Sodium 139 mmol/L (135-145); Total Protein 7.4 g/dL (6.5-8.0); Triglycerides 65 mg/dL (<150)
[2023-08-07 11:03] LABS: Prostate Specific Antigen Scr 1.08 ng/mL (<0.05-4.0)
== END 2023-08-07 09:11 | disposition home or self-care (01) ==
LOC: HO.LAB 09:10
PROVIDERS: PCP Physician Assistant; Visit Provider Physician Assistant
DX: E78.3 Hyperchylomicronemia (principal); K21.9 Gastro-esophageal reflux disease without esophagitis; Z12.5 Encounter for screening for malignant neoplasm of prostate
CPT/HCPCS: 36415; 80053; 80061; 84153; 85027

== ENCOUNTER 2024-02-11 08:22 | Outpatient (REF) | payer BC, SELFPAY ==
[2024-02-11 09:47] LABS: Hematocrit 45.8 % (42.0-52.0); Hemoglobin 15.5 g/dl (14.0-18.0); Mean Corpuscular HGB Conc 33.8 g/dl (31.0-36.0); Mean Corpuscular Hemoglobin 31.3 pg (27.0-33.0); Mean Corpuscular Volume 92.3 fL (80.0-98.0); Mean Platelet Volume 9.8 fL (9.4-12.4); Platelet Count 188 X10*3/uL (160-400); Red Blood Count 4.96 X10*6/uL (4.60-5.80); Red Cell Distribution Width 11.9 % (11.0-16.0)
[2024-02-11 10:26] LABS: Alanine Aminotransferase 37 U/L (0-40); Albumin Level 4.6 g/dL (3.5-5.0); Alkaline Phosphatase 62 U/L (39-117); Anion Gap 11 (12-20); Aspartate Amino Transferase 32 U/L (5-37); Bilirubin Total 0.5 mg/dL (0.0-1.0); Blood Urea Nitrogen 13 mg/dL (9-16); Calcium 9.2 mg/dL (8.4-10.2); Carbon Dioxide 29 mmol/L (22-29); Chloride 104 mmol/L (96-108); Cholesterol 161 mg/dL (<200); Estimated Glomerular Filt Rate > 60; Glucose Fasting 106 mg/dL (60-99); HDL Cholesterol 53 mg/dL (>40); LDL Cholesterol Calculated 95 mg/dL (<100); Potassium 4.6 mmol/L (3.3-5.1); Sodium 139 mmol/L (135-145); Total Protein 7.2 g/dL (6.5-8.0); Triglycerides 68 mg/dL (<150)
== END 2024-02-11 08:23 | disposition home or self-care (01) ==
LOC: HO.LAB 08:22
PROVIDERS: PCP Physician Assistant; Visit Provider Physician Assistant
DX: E78.3 Hyperchylomicronemia (principal); D70.9 Neutropenia, unspecified
CPT/HCPCS: 36415; 80053; 80061; 85027

== ENCOUNTER 2024-02-11 08:22 | Outpatient (AMB) | payer BC, SELFPAY ==
[2024-02-11 08:42] VITALS: BP 136/90; PULSE 80; O2SAT 97; BMI 31.7
--- NOTE | 2024-02-11 08:42 | A.OFFPC_ITS ---
Vital Signs 02/11/24 08:42 Height 5 ft 11 in Weight 227 lb BMI 31.7 BP 136/90 H Blood Pressure Location Lt brachial Position Sitting Pulse 80 Pulse Source Pulse Oximeter Pulse Oximetry (%) 97 Oxygen Delivery Method Room Air Intake Visit Reasons: f/u HLD Allergies Penicillins [PENICILLINS] Allergy (Intermediate, Verified 02/11/24 08:48) RASH Medication List - Last Reconciled 02/11/24 by Lexx Brooks PA-C cyanocobalamin (vitamin B-12) (Vitamin B-12) 1,000 mcg PO DAILY pantoprazole 40 mg PO DAILY simvastatin 40 mg PO DAILY Tobacco use date assessed: 08/07/23 Dental Screening Dental Screen Date: 08/07/23 HPI f/u HLD HPI Details Patient is a 53-year-old male here today for follow up.? Patient has a past medical history significant for hyperlipidemia, GERD, polyarthralgia. concerns--> WILL BE GETTING FASTING LABS DONE THIS MORNING. --> he experiences chronic difficulty achieving consistent deep sleep, with frequent nighttime awakenings and a lack of feeling rested in the mornings. This issue has persisted for years, with no evidence of obstructive sleep apnea following a negative test result. Previous attempts at using melatonin and [id number] sleep aids have proven ineffective. The patient considers trying hydroxyzine as a potential treatment for his sleep disturbances. He denies snoring and other respiratory difficulties during sleep. Elevated blood pressure reading: Blood pressure today in office acceptable. He reports that home blood pressures are stable 120 systolic. .. ..Hyperlipidemia:? Most recent lipid younger el showing excellent control of his total cholesterol and LDL.? He continues on? statin therapy without any side effect. .. ..GERD:? Uses PPI therapy daily with goo d effect. .. Leukopenia: Continues to follow hematology, leukopenia has been stable. ..Obesity:? Has been able to lose a few lb since last office visit, does report he has been more physically active and adapting to better eating habits to reduce his weight. ? [facility] Medical History Polyarthralgia TMJ arthritis Arthritis Hyperlipidemia GERD (gastroesophageal reflux disease) Leukopenia Surgical History History of colonoscopy History of mandibular surgery [place] teeth extracted H/O varicose vein stripping Family History Mother Cancer Father No problems noted. Social History Household Members: Spouse Household Members Other:: no kids Housing: House Alcohol intake: current Alcohol intake frequency: a few times a week Alcohol type: wine Patient Tobacco Use Status: Former Tobacco user Tobacco use type: Cigarette e-Cigarette/Vaping Use: Never Used Second Hand Smoke Exposure: No service: No Current occupational status: employed Current occupation: [employer] Current occupational exposures/hazards: No Cognitive needs: No Hearing needs: No Vision needs: Yes (for reading) Questionnaire Thrive Questionnaire Date Thrive assessed: 08/07/23 AUDIT C Alcohol Use Questionnaire (AUDIT-C) 2. How many drinks containing alcohol do you have on a typical day when you are drinking?: 3 or 4 3. How often do you have six or more drinks on one occasion?: Less than monthly Total Score: 2 TESS-7 AMB Questionnaire TESS-7 Date TESS - 7 assessed: 08/07/23 Source: Developed by Drs. Domingo Henriquez, Yin Avila, Dakota Back and colleagues, with an educational smitha from [employer]. Review of Systems Const Denies headache(s) Eyes Denies loss of vision ENT Denies vertigo, Denies dizziness, Denies headache(s) and Denies sore throat Card Denies chest pain, Denies leg edema and Denies lightheadedness Resp Denies cough, Denies hemoptysis and Denies wheezing GI Denies abdominal pain, Denies melena, Denies constipation, Denies diarrhea and Denies vomiting Denies dysuria, Denies urinary frequency and Denies urinary urgency Musc Denies arthralgias, Denies joint swelling, Denies numbness and Denies tingling Neuro Denies Abnormal speech present, Denies behavioral changes, Denies vertigo, Denies dizziness, Denies headache(s), Denies loss of vision, Denies memory loss, Denies numbness and Denies tingling Psych Denies anxiety, Denies behavioral changes, Denies depression, Denies memory loss and Denies panic attacks Siddhartha/Lymph Denies easy bleeding and Denies easy bruising Aller/Immun Denies wheezing Physical exam (Primary Care) Vital Signs: Last Vital Signs Pulse 80 02/11/24 08:42 BP 136/90 H 02/11/24 08:42 Pulse Ox 97 02/11/24 08:42 Oxygen Delivery Method Room Air 02/11/24 08:42 BMI result Body Mass Index 31.7 Tobacco/Smoking Status: Tobacco use Status Tobacco use date assessed 08/07/23 02/11/24 08:46 Patient Tobacco Use Status Former Tobacco user 02/11/24 08:46 Tobacco use type Cigarette 02/11/24 08:46 e-Cigarette/Vaping Use Never Used 02/11/24 08:46 Thrive Assessment: Date of Thrive Assessment Date Thrive assessed 08/07/23 02/11/24 08:46 Const General: healthy appearing, no acute distress, alert and awake Nutritional Appearance: well nourished Orientation/consciousness: oriented to person, oriented to place and oriented to time HENMT Ears: TM's normal bilaterally General nose exam: Normal nasal mucous membranes and turbinates present Eyes Conjunctivae: conjunctivae normal Sclerae: sclerae normal Pupils: Equal, round and reactive pupils present Neck Neck: Yes no lymphadenopathy and Yes no JVD Thyroid: Thyroid normal Carotids: no bruits Resp Effort & Inspection: normal respiratory effort and not tachypneic Auscultation: no crackles, no rales, no rhonchi and no wheezes Cardio Rate: regular rate Rhythm: regular rhythm Heart sounds: no murmurs and normal S1 and S2 GI Palpation (GI): Soft to palpation, nontender, no hepatomegaly and no splenomegaly Auscultation: normal bowel sounds Skin General skin exam: no rashes or lesions noted and dry skin Neuro General: oriented to person, oriented to place and oriented to time Cranial nerves: Yes Equal, round and reactive pupils present Speech: No Abnormal speech present Gait exam (Neuro): Normal gait present Motor exam (neuro): no tremor noted Extrem Right upper extremity: full ROM Left upper extremity: full ROM Right lower extremity: full ROM; no edema Left lower extremity: full ROM; no edema Psych Mental Status: mental status grossly normal Speech and movement: Normal speech and movement present Affect: normal affect Attitude: cooperative Thought process: Normal thought process present Coding Level of Care Code Est Pt Level 4 (64329) Diagnoses 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 Goal LDL is to remain below 130. (2) Leucopenia: Code(s): D72.819 - Decreased white blood cell count, unspecified Category: Medical Qualifiers: Leukopenia type: neutropenia Neutropenia type: unspecified Qualified Code(s): D70.9 - Neutropenia, unspecified Plan: Will continue to follow CBC. No recurrent infections. (3) Insomnia: Code(s): G47.00 - Insomnia, unspecified Category: Medical Qualifiers: Insomnia type: primary Qualified Code(s): F51.01 - Primary insomnia Plan: Begin trialing hydroxyzine 10 to 25 mg for sleep disturbances as directed. Medications: New hydroxyzine HCl take 1-2 tabs before bed 20 mg (2 x 10 mg) PO BEDTIME 15 days 30 tabs 0RF F41.9 - Anxiety disorder, unspecified, G47.00 - Insomnia, unspecified
== END 2024-02-11 08:59 | disposition home or self-care (01) ==
PROVIDERS: PCP Physician Assistant; Visit Provider Physician Assistant
DX: E78.3 Hyperchylomicronemia (principal); D70.9 Neutropenia, unspecified; F51.01 Primary insomnia

== ENCOUNTER 2024-03-13 11:23 | Outpatient (AMB) | payer BC, SELFPAY ==
--- NOTE | 2024-03-13 11:24 | MHC.OFFVIS ---
Intake Visit Reasons: pre colonoscopy Intake Note: No concerns today just due for a colonoscopy. CC: denies any GI concerns. Allergies Penicillins [PENICILLINS] Allergy (Intermediate, Verified 03/13/24 11:25) RASH HPI Comments Details: This is a 53-year-old gentleman who is presenting for video tele visit to discuss surveillance colonoscopy. Patient currently has no abdominal pain, nausea, vomiting, diarrhea, rectal bleeding. No changes in family history. Last colonoscopy 01/28/2021: 12-15 mm ascending colon polyp sessile serrated. [facility] Medical History Polyarthralgia TMJ arthritis Arthritis Hyperlipidemia GERD (gastroesophageal reflux disease) Leukopenia Surgical History History of colonoscopy History of mandibular surgery [place] teeth extracted H/O varicose vein stripping Family History Mother Cancer Father No problems noted. Social History Household Members: Spouse Household Members Other:: no kids Housing: House Alcohol intake: current Alcohol intake frequency: a few times a week Alcohol type: wine Patient Tobacco Use Status: Former Tobacco user Tobacco use type: Cigarette e-Cigarette/Vaping Use: Never Used Second Hand Smoke Exposure: No service: No Current occupational status: employed Current occupation: [employer] Current occupational exposures/hazards: No Cognitive needs: No Hearing needs: No Vision needs: Yes (for reading) Review of Systems Const All systems reviewed & are unremarkable except as noted in HPI and below Physical Exam Vital Signs: Video visit: No acute distress Able to speak in full sentences No dysarthria No facial asymmetry Assessment & Plan Assessment & Plan (1) Colon polyp: Code(s): K63.5 - Polyp of colon Category: Medical Qualifiers: Colon polyp type: inflammatory Colon location: unspecified part of colon Inflammatory colon polyp complication status: without complication Qualified Code(s): K51.40 - Inflammatory polyps of colon without complications Plan: History of sessile serrated lesion in 01/28/2021. Due for follow-up colonoscopy. Patient requests to be prescribed MiraLax prep again, as it worked well for him last time. Sent to pharmacy. Instructions reviewed with the patient verbally, as well as link sent through the portal. Follow-up as needed after the colonoscopy. Medications: New bisacodyl (Dulcolax (bisacodyl)) as per colonoscopy instructions 20 mg (4 x 5 mg) PO ONCE 8 tabs 0RF polyethylene glycol 3350 (Miralax) for colonoscopy prep - mix in 64 oz of gatorade 238 grams PO ONCE 238 grams 0RF Coding Level of Care Code Tele Est Pt Level 3 (16274) Diagnoses Pseudopolyposis of colon without complication, unspecified part of colon K51.40 Colon polyp type: inflammatory Colon location: unspecified part of colon Inflammatory colon polyp complication status: without complication
== END 2024-03-13 12:11 | disposition home or self-care (01) ==
LOC: HO.HGI 11:23
PROVIDERS: PCP Physician Assistant; Visit Provider Internal Medicine
DX: K51.40 Inflammatory polyps of colon without complications (principal)
CPT/HCPCS: 99213

== ENCOUNTER → 2024-03-13 11:23 | Outpatient (BNVA) | payer BC, SELFPAY | PROVIDERS: PCP Physician Assistant; Visit Provider Internal Medicine ==

== ENCOUNTER 2024-08-11 07:49 | Outpatient (REF) | payer BC, SELFPAY ==
[2024-08-11 09:48] LABS: Hematocrit 46.1 % (42.0-52.0); Hemoglobin 15.6 g/dl (14.0-18.0); Mean Corpuscular HGB Conc 33.8 g/dl (31.0-36.0); Mean Corpuscular Hemoglobin 31.4 pg (27.0-33.0); Mean Corpuscular Volume 92.8 fL (80.0-98.0); Mean Platelet Volume 10.2 fL (9.4-12.4); Platelet Count 212 X10*3/uL (160-400); Red Blood Count 4.97 X10*6/uL (4.60-5.80); White Blood Count 4.7 X10*3/uL (4.8-10.8)
[2024-08-11 09:58] LABS: Estimated Average Glucose 103 mg/dL; Hemoglobin A1c % 5.2 % (<6.0); Total Hemoglobin (HGBA1C) 4041.7307 umol/L
[2024-08-11 10:44] LABS: Alanine Aminotransferase 26 U/L (0-40); Albumin Level 4.9 g/dL (3.5-5.0); Alkaline Phosphatase 46 U/L (39-117); Anion Gap 12 (12-20); Aspartate Amino Transferase 27 U/L (5-37); Blood Urea Nitrogen 14 mg/dL (9-16); Calcium 9.7 mg/dL (8.4-10.2); Carbon Dioxide 29 mmol/L (22-29); Chloride 103 mmol/L (96-108); Cholesterol 165 mg/dL (<200); Estimated Glomerular Filt Rate > 60; Glucose Fasting 95 mg/dL (60-99); HDL Cholesterol 60 mg/dL (>40); LDL Cholesterol Calculated 97 mg/dL (<100); Potassium 4.6 mmol/L (3.3-5.1); Sodium 139 mmol/L (135-145); Total Protein 7.5 g/dL (6.5-8.0); Triglycerides 44 mg/dL (<150)
== END 2024-08-11 07:50 | disposition home or self-care (01) ==
LOC: HO.LAB 07:49
PROVIDERS: PCP Physician Assistant; Visit Provider Physician Assistant
DX: Z00.00 Encounter for general adult medical examination without abnormal findings (principal); E78.3 Hyperchylomicronemia; D70.9 Neutropenia, unspecified; F51.01 Primary insomnia; R73.09 Other abnormal glucose; E66.811 Obesity, class 1; Z68.31 Body mass index [BMI] 31.0-31.9, adult; K21.9 Gastro-esophageal reflux disease without esophagitis; Z12.5 Encounter for screening for malignant neoplasm of prostate
CPT/HCPCS: 36415; 80053; 80061; 83036; 84153; 85027; 96127

== ENCOUNTER 2024-08-11 07:49 | Outpatient (AMB) | payer BC, SELFPAY ==
--- OUTSIDE RECORDS SUMMARY | 2024-08-11 07:52 | XMS_ITS | Patient Health Record ---
Author Organization [facility] Melanie bambi [place] Address [address] [place] [address] Care Team Providers Care Physician Name Role Phone Lexx Brooks Primary Care Provider Unavailab mita WaldenAntonietta Unavailable [phone] Allergies Allergen (clinical drug ingredient) Drug/Non Drug Allergy documented on EMR Reaction Allergy Type Onset Date Status Penicillin rash Drug Allergy Active Reason For Referral No Information Medications Medication SIG (Take, Route, Frequency, Duration) Notes Start Date End Date Status Diclofenac Sodium 75 MG 1 tablet as need ed Orally Twice a day Active Pantoprazole Sodium 40 MG 1 tablet Orall y Once a day for 30 day(s) Active Simvastatin 40 MG 1 tablet in the even ing Orally Once a day Active Vitamin B-12 1000 MCG 1 tablet Orally On ce a day for 30 day(s) Active Omeprazole 20 MG 1 capsule Orally Onc e a day for 30 day(s) Not-Taking Immunizations Vaccine Route Administration Date Status Comme nts COVID-19 Moderna Vaccine Unknown 07/29/2020 Administere d 1st 07/01/2020 Social History Tobacco Use: Social History Observation Description Date Details (start date - stop date) Former Smoker NA - 05/11/2002 Tobacco Use/Smoking Question Answer Notes Are you a: former smoker When did you stop smoking? 05/11/2002 Additional Findings: Tobacco Non-User Current no n-smoker Alcohol Screen Question Answer Notes Did you have a drink containing alcohol in the p ast year? Yes Points 0 Interpretation Negative Tobacco use other than smoking: Question Answer Notes Are you an other tobacco user? No Plan Of Treatment Pending Test Test Name Order Date X ray : Foot, left 3V 08/02/2011 X ray : Foot, left 3V 04/12/2021 X ray : Foot, right 3V 08/02/2011 X ray : Foot, right 3V 04/12/2021 [id number] TENDON SHEATH/LIGAMENT 1 04/15/[id number] TENDON SHEATH/LIGAMENT 0 10/10/[id number] TENDON SHEATH/LIGAMENT 0 12/03/2011 [id number] 3mg 12/03/2011 [id number] 3mg 10/10/2011 [id number] 3mg 02/13/2012 Insurance Providers Payer Name Payer Address Payer Phone Subscriber Number Group Number Insured Name Patient Relationship to Insured Coverage Start Date Coverage End Date Latrell [facility] [address] [place] [address] [id number] Ryley Mae Self - patient is the insured Medical (General) History Medical History History ICD Code chicken pox anxiety CAD (Cholesterol) covid-19 Reflux ( GERD) Chicken pox Surgical History Surgery Date(Month/Year) TMJ surgery vein surgery colonoscopy 01/2021
[2024-08-11 07:57] VITALS: BP 138/84; PULSE 77; RESP 16; TEMP 36.2; O2SAT 97; BMI 31.3
--- NOTE | 2024-08-11 07:57 | A.OFFPC_ITS ---
Vital Signs 08/11/24 07:57 Height 5 ft 11 in Weight 224 lb 9.6 oz BMI 31.3 BP 138/84 Blood Pressure Location Lt brachial Position Sitting Respiration 16 Pulse 77 Pulse Source Pulse Oximeter Temp 97.1 F Temp Source Oral Pulse Oximetry (%) 97 Oxygen Delivery Method Room Air Intake Visit Reasons: Annual exam A And P Technician Required: No Accompanied by: Self / Same As Patient Allergies Penicillins [PENICILLINS] Allergy (Intermediate, Verified 08/11/24 08:09) RASH Medication List - Last Reconciled 08/11/24 by Lexx Brooks PA-C bisacodyl (Dulcolax (bisacodyl)) 20 mg (4 x 5 mg) PO ONCE cyanocobalamin (vitamin B-12) (Vitamin B-12) 1,000 mcg PO DAILY hydroxyzine HCl 20 mg PO BEDTIME PRN pantoprazole 40 mg PO DAILY polyethylene glycol 3350 (Miralax) 238 grams PO ONCE simvastatin 40 mg PO DAILY Tobacco use date assessed: 08/11/24 Dental Screening Dental Screen Date: 08/11/24 Did you have a dental visit in the last 12 months?: Yes Did you have a dental problem in the last 6 months where you did not have access to dental care?: No Was dental information given to patient?: Patient has dentist HPI Annual exam HPI Details Patient is a 53-year-old male here today for routine annual physical.? Patient has a past medical history significant for hyperlipidemia, GERD, polyarthralgia. ..Hyperlipidemia:? Most recent lipid younger el showing excellent control of his total cholesterol and LDL.? He continues on? statin therapy without any side effect. .. Impaired glucose metabolism: Most recent fasting labs showing an elevated fasting blood sugar at 106. Will check an A1c to eval for diabetes .. Class 1 obesity: He does understand his BMI is over 30 will continue working on being more physically active and adapting to better eating habits to reduce his weight .. ..GERD:? Uses PPI therapy daily with goo d effect. .. Leukopenia: Continues to follow hematology, leukopenia has been stable. ..Obesity:? Has been able to lose a few lb since last office visit, does report he has been more physically active and adapting to better eating habits to reduce his weight. Vaccines: Up-to-date with COVID vaccine, tetanus vaccine, considering shingles vaccine Colon cancer screening: Colonoscopy done in 2020, need repeat 3-5 years - has upcoming appointment for colonoscopy next week [facility] Medical History Elevated blood pressure reading in office with white coat syndrome, without diagnosis of hypertension Polyarthralgia TMJ arthritis Arthritis Hyperlipidemia GERD (gastroesophageal reflux disease) Leukopenia Surgical History History of colonoscopy History of mandibular surgery [place] teeth extracted H/O varicose vein stripping Family History Mother Cancer Father No problems noted. Social History Household Members: Spouse Household Members Other:: no kids Housing: House Alcohol intake: current Alcohol intake frequency: a few times a week Alcohol type: wine Patient Tobacco Use Status: Former Tobacco user Tobacco use type: Cigarette e-Cigarette/Vaping Use: Never Used Second Hand Smoke Exposure: No service: No Current occupational status: employed Current occupation: [employer] Current occupational exposures/hazards: No Cognitive needs: No Hearing needs: No Vision needs: Yes (Reading glasses) Questionnaire PHQ-9 Over the last 2 weeks, how often have you been bothered by any of the following problems? 1. Little interest or pleasure in doing things: not at all 2. Feeling down, depressed, or hopeless: not at all 3. Trouble falling or staying asleep, or sleeping too much: not at all 4. Feeling tired or having little energy: not at all 5. Poor appetite or overeating: not at all 6. Feeling bad about yourself - or that you are a failure or have let yourself or your family down: not at all 7. Trouble concentrating on things, such as reading the newspaper or watching television: not at all 8. Moving or speaking so slowly that other people could have noticed. Or the opposite - being so fidgety or restless that you have been moving around a lot more than usual: not at all 9. Thoughts that you would be better off or of hurting yourself in some way: not at all Total score: 0 Depression Screening Interpretation: Negative Depression Screening Done: Yes 11777 - PHQ-9 Billing: Yes Source: Developed by Drs. Domingo Henriquez, Yin Avila, Dakota Back and colleagues, with an educational smitha from [employer]. Thrive Questionnaire Date Thrive assessed: 08/11/24 I am a: Patient What is your living situation today?: I have a steady place to live Within the past 12 months, did you worry whether your food would run out before you got money to buy more?: Never true Do you have trouble paying for medicines?: No Do you have trouble getting transportation to medical appointments?: No Do you have trouble paying your heating and electricity bill?: No Do you have trouble taking care of your child, family member or friend?: No Do you have trouble with day-to-day activities such as bathing, preparing meals, shopping, managing finances, etc.?: No Are you currently unemployed and looking for a job?: No Are you interested in more education?: No Please select the resources that you would like help with: None Currently or been in a relationship where the following occur: No concerns reported THRIVE Score: 0 AUDIT C Alcohol Use Questionnaire (AUDIT-C) 1. How often do you have a drink containing alcohol?: 2-3 times a week 2. How many drinks containing alcohol do you have on a typical day when you are drinking?: 3 or 4 3. How often do you have six or more drinks on one occasion?: Less than monthly Total Score: 5 Score Reviewed/Action Taken: Yes TESS-7 AMB Questionnaire TESS-7 Date TESS - 7 assessed: 08/11/24 Feeling nervous, anxious, or on edge: 0 = Not at all Not being able to stop or control worryin = Not at all Worrying too much about different things: 0 = Not at all Trouble relaxin = Not at all Being so restless that it is hard to sit still: 0 = Not at all Becoming easily annoyed or irritable: 0 = Not at all Feeling afraid as if something awful might happen: 0 = Not at all Total TESS-7 score (0-4 normal; 5-9 mild; 10-14 moderate; 15-21 severe): 0 Source: Developed by Yin Coombs, Dakota Back and colleagues, with an educational smitha from [employer]. TESS-7 Assessment Billing TESS-7 Assessment Tool: TESS-7 Assessment 60725 Review of Systems Const Denies body aches, Denies chills, Denies excessive sweating, Denies fatigue, Denies fever(s) and Denies headache(s) Eyes Denies blurry vision ENT Denies dysphagia, Denies vertigo, Denies dizziness, Denies headache(s), Denies hearing loss and Denies tinnitus Card Denies chest pain, Denies chest pain with activity, Denies syncope, Denies irregular heart rhythm and Denies dyspnea Resp Denies chest congestion, Denies cough, Denies hemoptysis, Denies dyspnea and Denies wheezing GI Denies abdominal pain, Denies melena, Denies hematochezia, Denies coffee ground emesis, Denies dysphagia, Denies diarrhea, Denies nausea and Denies vomiting Denies difficulty urinating, Denies dysuria, Denies urinary frequency, Denies urinary hesitancy and Denies urinary urgency Musc Denies arthralgias, Denies limited range of motion, Denies muscle cramps and Denies muscle weakness Skin/Breast Denies rash and Denies skin ulcer Neuro Denies Abnormal speech present, Denies confusion, Denies vertigo, Denies dizziness, Denies syncope, Denies headache(s), Denies memory loss and Denies seizure-like activity Psych Denies anxiety, Denies confusion, Denies depression, Denies memory loss, Denies panic attacks and Denies paranoia Endo Denies excessive sweating, Denies fatigue, Denies flushing, Denies polydipsia and Denies polyuria Aller/Immun Denies wheezing Physical exam (Primary Care) Vital Signs: Last Vital Signs Temp 97.1 F 08/11/24 07:57 Pulse 77 08/11/24 07:57 Resp 16 08/11/24 07:57 BP 138/84 08/11/24 07:57 Pulse Ox 97 08/11/24 07:57 Oxygen Delivery Method Room Air 08/11/24 07:57 BMI result Body Mass Index 31.3 BMI Assessment/Plan discussion: High BMI High, discussed plan: lifestyle, weight reduction, dietary and physical activity Tobacco/Smoking Status: Tobacco use Status Tobacco use date assessed 08/11/24 08/11/24 08:04 Patient Tobacco Use Status Former Tobacco user 08/11/24 08:04 Tobacco use type Cigarette 08/11/24 08:04 e-Cigarette/Vaping Use Never Used 08/11/24 08:04 PHQ-9: PHQ-9 Score PHQ-9: Total score 0 08/11/24 08:04 Depression Screening Interpretation: Negative Thrive Assessment: Date of Thrive Assessment Date Thrive assessed 08/11/24 08/11/24 08:04 Currently or been in a relationship where the following occur: No concerns reported Const General: cooperative, comfortable, no acute distress, alert and awake; No confusion Orientation/consciousness: oriented to person, oriented to place, patient oriented x3 and No confusion HENMT Head: Yes normocephalic Ears: external ears normal and TM's normal bilaterally Face and sinus: No sinus tenderness Mouth: Normal oral and palatal mucosa present and tongue normal Teeth and gingiva: dentition normal and gingiva normal Throat: Yes posterior oropharynx normal, Yes tonsils normal and Yes uvula midline Eyes Conjunctivae: conjunctivae normal Sclerae: sclerae normal Pupils: Equal, round and reactive pupils present EOM: EOMs intact bilaterally Direct Ophthalmoscopy: No no photophobia Neck Neck: Yes no lymphadenopathy, No tender and Yes no JVD Thyroid: Thyroid normal Carotids: no bruits Chest Chest palpation & inspection: no tenderness Resp Effort & Inspection: normal respiratory effort, no audible wheezes, not labored and no stridor Auscultation: no crackles, no rales, no rhonchi and no wheezes Cardio Jugular venous distension: no JVD Rate: regular rate, not bradycardic and not tachycardic Rhythm: regular rhythm Bruits: no carotid bruits Peripheral pulses: Peripheral pulses 2+ throughout GI Inspection: Yes normal to inspection, No abdominal wall ecchymosis and No visible herniation Palpation (GI): Soft to palpation, nontender, no guarding, not rigid and No hepatosplenomegaly present Auscultation: normoactive bowel sounds General: Yes no CVA tenderness Back/Spine/Pelvis Back: no CVA tenderness and No back tenderness Cervical Spine: cervical ROM normal Thoracic/Lumbar Spine: thoracic and lumbar spine normal to inspection, straight leg raise negative bilaterally, No thoraco-lumbar ROM limited and No lumbar spinal tenderness Skin Lesions: no lesions Rashes: no rashes Wounds: no wounds Neuro General: oriented to person, oriented to place, patient oriented x3, CN's II-XI intact bilaterally and No confusion Cranial nerves: Yes Equal, round and reactive pupils present and Yes Normal accommodation reflex present Cognition (Neuro): normal cognition Speech: No Abnormal speech present Gait exam (Neuro): Normal gait present Motor exam (neuro): 5/5 motor strength present throughout Extrem Right upper extremity: full ROM; no cyanosis Left upper extremity: full ROM; no cyanosis Right lower extremity: no edema Left lower extremity: no edema Psych Appearance: grossly normal Mental Status: mental status grossly normal Affect: normal affect Attitude: cooperative Thought process: Normal thought process present Coding Level of Care Code Est Pt Prev Care 40-64y(51886) Diagnoses Annual physical exam 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 Neutropenia, unspecified type D70.9 Leukopenia type: neutropenia Neutropenia type: unspecified Primary insomnia F51.01 Insomnia type: primary Impaired glucose metabolism R73.09 Class 1 obesity E66.811 Additional Codes TESS-7 Assessment Billing - TESS-7 Assessment Tool: TESS-7 Assessment 09349 ([id number]) PHQ-9 - 08555 - PHQ-9 Billing: Yes ([id number]) Assessment & Plan Assessment & Plan (1) Annual physical exam: Code(s): Z00.00 - Encounter for general adult medical examination without abnormal findings Category: Medical Plan: As per HPI (2) HLD (hyperlipidemia): Code(s): E78.5 - Hyperlipidemia, unspecified Category: Medical Qualifiers: Hyperlipidemia type: hyperchylomicronemia Qualified Code(s): 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 Goal LDL is to remain below 130. (3) Leucopenia: Code(s): D72.819 - Decreased white blood cell count, unspecified Category: Medical Qualifiers: Leukopenia type: neutropenia Neutropenia type: unspecified Qualified Code(s): D70.9 - Neutropenia, unspecified Plan: Will continue to follow CBC. No recurrent infections. (4) Insomnia: Code(s): G47.00 - Insomnia, unspecified Category: Medical Qualifiers: Insomnia type: primary Qualified Code(s): F51.01 - Primary insomnia Plan: Has been intermittently using hydroxyzine for sleep with good effect. Will continue dose of hydroxyzine (5) Impaired glucose metabolism: Code(s): R73.09 - Other abnormal glucose Category: Medical Plan: Patient's most recent fasting blood sugar at 106. Will check an A1c to evaluate food diabetes. He will continue working on low carbohydrate diet and being more physically active to reduce his blood sugar. (6) Class 1 obesity: Code(s): E66.811 - Obesity, class 1 Category: Medical Plan: Patient does understand his BMI is over 30 will continue working on being more physically active to reduce his weight. Orders: Orders Comprehensive [place]. Panel Fast Today E78.3 - Hyperchylomicronemia Lipid Panel Today E78.3 - Hyperchylomicronemia Complete Blood Count no Diff Today E78.3 - Hyperchylomicronemia Prostate Specific Antigen Scr Today E78.3 - Hyperchylomicronemia, Z12.5 - Encounter for screening for malignant neoplasm of prostate Hemoglobin A1c Today R73.09 - Other abnormal glucose Medications: Changed From hydroxyzine HCl take 1-2 tabs before bed 20 mg PO BEDTIME PRN F41.9 - Anxiety disorder, unspecified, G47.00 - Insomnia, unspecified To hydroxyzine HCl take 1-2 tabs before bed 20 mg (2 x 10 mg) PO BEDTIME 15 days 30 tabs 3RF F41.9 - Anxiety disorder, unspecified, G47.00 - Insomnia, unspecified Patient Instructions: Goal: Total cholesterol to be below 200 LDL to remain below 160 Barriers: Adherence to physical activity and healthy eating habits
== END 2024-08-11 08:26 | disposition home or self-care (01) ==
LOC: HO.HMCH 07:49
PROVIDERS: PCP Physician Assistant; Visit Provider Physician Assistant
DX: Z00.00 Encounter for general adult medical examination without abnormal findings (principal); E78.3 Hyperchylomicronemia; E66.811 Obesity, class 1; Z68.31 Body mass index [BMI] 31.0-31.9, adult; D70.9 Neutropenia, unspecified; F51.01 Primary insomnia; R73.09 Other abnormal glucose

== ENCOUNTER 2024-08-18 06:06 | Day surgery (SDC) | payer BC, SELFPAY ==
[2024-08-14 10:09] VITALS: BMI 31.2
--- NOTE | 2024-08-17 10:28 | P.CONAN_ITS ---
HPI - Anesthesia Eval Consult details Narrative: 53yo M for Colonoscopy [facility] Active Problems Active Problems: All Active Problems Class 1 obesity (Acute) Impaired glucose metabolism (Acute) Insomnia (Acute) Colon polyp (Acute) Skin lesion of left arm (Acute) YUMIKO (obstructive sleep apnea) (Acute) Annual physical exam (Acute) Leucopenia (Chronic) Colon cancer screening (Acute) Screening for diabetes mellitus (DM) (Acute) HLD (hyperlipidemia) (Acute) GERD (gastroesophageal reflux disease) (Acute) Past Medical History Medical History Elevated blood pressure reading in office with white coat syndrome, without diagnosis of hypertension Polyarthralgia TMJ arthritis Arthritis Hyperlipidemia GERD (gastroesophageal reflux disease) Leukopenia Family History Family History Mother Cancer Father No problems noted. Family history of problems with anesthesia: No Surgical History Surgical History History of colonoscopy History of mandibular surgery [place] teeth extracted H/O varicose vein stripping History of Problems with Anesthesia: No Social History Social History Household Members: Spouse Household Members Other:: no kids Housing: House Alcohol intake: current Alcohol intake frequency: holidays/special occasions only Alcohol type: wine Patient Tobacco Use Status: Former Tobacco user Tobacco use type: Cigarette e-Cigarette/Vaping Use: Never Used Second Hand Smoke Exposure: No service: No Current occupational status: employed Current occupation: [employer] Current occupational exposures/hazards: No Cognitive needs: No Hearing needs: No Vision needs: Yes (Reading glasses) Meds Allergies Allergy/AdvReac Type Severity Reaction Status Date / Time Penicillins (PENICILLINS) Allergy Intermediate RASH Verified 08/11/24 08:09 Exam Height,Weight and Vital Signs: Height 5 ft 11 in Weight 101.605 kg Assessment and Plan Assessment Anesthesia Assessment: Chart Reviewed Final Anesthetic Review Family History of Problems with Anesthesia: No History of Problems with Anesthesia: No
[2024-08-18 07:19] VITALS: BP 141/87; PULSE 65; RESP 20; TEMP 36.9; O2SAT 98; BMI 31.1
[2024-08-18] MEDS: Lactated Ringers 1,000 ML 100 ML IVCONT (07:37)
--- NOTE | 2024-08-18 07:44 | P.HPSUR_ITS ---
Pre-Procedural Eval Section A - 24 Hr Update-Section A only Date of Service: 08/18/24 Section B - Complete if H&P > 30 days Chief Complaint: Hx of polyps Details of Present Illness: Polyarthralgia TMJ arthritis Arthritis Hyperlipidemia GERD (gastroesophageal reflux disease) Leukopenia Surgical History History of colonoscopy History of mandibular surgery [place] teeth extracted H/O varicose vein stripping Present Medications: see Short Stay Collaborative assessment Allergies: Allergies Allergy/AdvReac Type Severity Reaction Status Date / Time Penicillins [PENICILLINS] Allergy Intermediate RASH Verified 08/11/24 08:09 Review of Systems Review of Systems Comment: Ten point ROS negative Exam Exam Comment: Gen appear: No acute distress HEENT: no icterus Chest: No overt resp distress Abd: soft, nontender, nondistended Psych: Stable affect, answering questions appropriately Neuro: A/Ox3 noted to move all extremities spontaneously Ext: no peripheral edema Plan Diagnosis/Plan: Unchanged I have reviewed the history and physical and performed a pertinent physical examination on my patient. No changes have occurred unless specified. Time Spent With Patient Time: Total time managing care of this patient today ____ minutes.
--- NOTE | 2024-08-18 08:16 | P.CONAN_ITS ---
[facility] Active Problems Active Problems: All Active Problems Class 1 obesity (Acute) Impaired glucose metabolism (Acute) Insomnia (Acute) Colon polyp (Acute) Skin lesion of left arm (Acute) YUMIKO (obstructive sleep apnea) (Acute) Annual physical exam (Acute) Leucopenia (Chronic) Colon cancer screening (Acute) Screening for diabetes mellitus (DM) (Acute) HLD (hyperlipidemia) (Acute) GERD (gastroesophageal reflux disease) (Acute) Past Medical History Medical History Elevated blood pressure reading in office with white coat syndrome, without diagnosis of hypertension Polyarthralgia TMJ arthritis Arthritis Hyperlipidemia GERD (gastroesophageal reflux disease) Leukopenia Functional capacity: independent ambulation Family History Family History Mother Cancer Father No problems noted. Family history of problems with anesthesia: No Surgical History Surgical History History of colonoscopy History of mandibular surgery [place] teeth extracted H/O varicose vein stripping History of Problems with Anesthesia: No Social History Social History Household Members: Spouse Household Members Other:: no kids Housing: House Alcohol intake: current Alcohol intake frequency: holidays/special occasions only Alcohol type: wine Patient Tobacco Use Status: Former Tobacco user Tobacco use type: Cigarette e-Cigarette/Vaping Use: Never Used Second Hand Smoke Exposure: No Have you been hit, kicked, punched, or otherwise hurt by someone within the past year? If so, by whom?: No Advance Directives: No Advance Directives Information Provided: Yes service: No Current occupational status: employed Current occupation: [employer] Current occupational exposures/hazards: No Cognitive needs: No Hearing needs: No Vision needs: Yes (Reading glasses) Meds Allergies Allergy/AdvReac Type Severity Reaction Status Date / Time Penicillins [PENICILLINS] Allergy Intermediate RASH Verified 08/11/24 08:09 Active Medications: Current Medications Lactated Ringer's (Lr) 1,000 mls @ 100 mls/hr IVCONT .Q10H MORGAN Last Admin: 08/18/24 07:37 Dose: 100 mls/hr Exam Height,Weight and Vital Signs: Height 5 ft 11 in Weight 101.3 kg Last Vital Signs Temp 98.5 F 08/18/24 07:19 Pulse 65 08/18/24 07:19 Resp 20 08/18/24 07:19 BP 141/87 H 08/18/24 07:19 Pulse Ox 98 08/18/24 07:19 O2 Del Method Room Air 08/18/24 07:19 Airway Mallampati Class: II TM Dist: >3cm Neck ROM: Full Heart: RRR Lungs: CYA Assessment and Plan Assessment Anesthesia Assessment: Anesthesia Plan Discussed Final Anesthetic Review Family History of Problems with Anesthesia: No History of Problems with Anesthesia: No NPO: Yes ASA Class: II Final Preanesthetic Review: Meds/Grabiel Chart Reviewed and Consent Obtained/Reviewed Patient Risk: Low Procedure Risk: Low Anesthetic Plan Anesthetic Plan: MAC: Disposition: Standard PACU
[2024-08-18 09:05] VITALS: BP 111/39; PULSE 70; RESP 16; TEMP 36.3; O2SAT 100
--- NOTE | 2024-08-18 09:13 | P.OPN-COLO_ITS ---
Colonoscopy Operative Note Operative Note Date of Service: 08/18/24 Narrative: Procedure: Colonoscopy Indication: Personal history of polyps Endoscopist: Coco Todd MD Anesthesia Provider: Dr Merlyn Marin Anesthesia type: MAC Instrument: Olympus [id number]-H190L Consent: Indication, risks vs benefits, and alternatives were discussed with the patient who gave written informed consent to proceed. EKG, pulse, pulse oximetry and blood pressure were monitored throughout the procedure. Please see anesthesia flowsheet. Procedure: The patient was brought to the procedure room and placed in the left lateral decubitus position. IV medications were administered by the anesthesia provider in attendance. A digital rectal exam was performed which was normal. A distal attachment cap was affixed to the tip of the colonoscope which was then inserted through the anus and advanced through the colon to the cecum at 75 cm,and terminal ileum. Appendiceal orifice and ileocecal valve were identified. Mucosa was carefully examined under high definition white light as the instrument was slowly withdrawn in a retrograde panoramic fashion. Retroflexion was performed in rectum. The procedure was not difficult. There were no immediate obvious complications. The quality of the prep was BBPS: 2+3+3 = adequate Withdrawal time 10 minutes. Limitations: No limitations. Findings: Mucosa: Normal to cecum and terminal ileum. The ascending colon was intubated twice and no residual or new polyp was noted. Protruding lesions: * Medium internal hemorrhoids without stigmata of recent bleeding. Excavated lesions: * Moderate diverticulosis of left sided colon. Impression: 1. Normal colon and terminal ileum mucosa 2. Diverticulosis 3. Internal hemorrhoids Recommendations: - Repeat colonoscopy in 10 years
[2024-08-18 09:20] VITALS: BP 123/79; PULSE 70; RESP 16; TEMP 36.3; O2SAT 100
--- NOTE | 2024-08-18 09:39 | HO.POSTANES ---
Post Anesthesia Evaluation Post Anesthesia Evaluation Date of Service: 08/18/24 Vital Signs: Vital Signs Temp Pulse Resp BP Pulse Ox O2 Del Method 08/18/24 09:20 97.4 F 70 16 123/79 100 Room Air 08/18/24 09:05 97.4 F 70 16 111/39 L 100 Room Air 08/18/24 07:19 98.5 F 65 20 141/87 H 98 Room Air Anesthesia: Monitored Pain Control: Satisfactory Nausea/Vomiting: None Hydration: Adequate Anesthesia-Related Issues: No Anes. Related Issues
== END 2024-08-18 09:52 | disposition home or self-care (01) ==
PROVIDERS: PCP Physician Assistant; Visit Provider Internal Medicine
PROC: 0DJD8ZZ Inspection of Lower Intestinal Tract, Via Natural or Artificial Opening Endoscopic (ICD-10-PCS; CPT 45378; principal; 2024-08-18 08:20)
DX: Z12.11 Encounter for screening for malignant neoplasm of colon (principal); Z86.0101 Personal history of adenomatous and serrated colon polyps; K57.30 Diverticulosis of large intestine without perforation or abscess without bleeding; K64.8 Other hemorrhoids; K21.9 Gastro-esophageal reflux disease without esophagitis; E78.5 Hyperlipidemia, unspecified; R03.0 Elevated blood-pressure reading, without diagnosis of hypertension; D72.819 Decreased white blood cell count, unspecified; M19.90 Unspecified osteoarthritis, unspecified site; Z79.899 Other long term (current) drug therapy; Z88.0 Allergy status to penicillin; Z98.890 Other specified postprocedural states; Z87.891 Personal history of nicotine dependence
CPT/HCPCS: 45378; J2003; J2704

== ENCOUNTER → 2024-08-18 06:06 | Outpatient (BNV) | payer BC, SELFPAY | PROVIDERS: PCP Physician Assistant; Visit Provider Internal Medicine | DX: Z12.11 Encounter for screening for malignant neoplasm of colon (principal); Z86.0100 Personal history of colon polyps, unspecified; K57.90 Diverticulosis of intestine, part unspecified, without perforation or abscess without bleeding; K64.8 Other hemorrhoids | CPT/HCPCS: 45378 ==